=== PATIENT | female | born 1950 | race Caucasian/White ===

== ENCOUNTER 2018-06-08 21:59 | Emergency (ER) | payer OTHER ==
[2018-06-08 22:04] VITALS: BP 145/79
--- NOTE | 2018-06-08 22:25 | EDPHY ---
H & P Time Seen by Provider: 06/08/18 22:11 HPI/ROS: 67-year-old female presents complaining of ear bud stuck in her left ear. Review of systems As per HPI General no fever no chills no weakness HEENT no eye pain no eye discharge. No eye redness, no sore throat Respiratory no cough, no shortness of breath Cardiac no chest pain, no peripheral edema GI no abdominal pain, no diarrhea, no constipation, no nausea, no vomiting no flank pain, no hematuria, no dysuria Musculoskeletal no myalgias, no joint pain Heme no easy bruising, no easy bleeding Endo no polyuria, no polydipsia Skin no rashes, no pruritus Neuro no syncope, no dizziness, no headaches Psych is no suicidal ideation, no homicidal ideation Past Medical/Surgical History: Non contributory Social History: Denies alcohol or drug use Smoking Status: Former smoker Physical Exam: 67-year-old female Alert and oriented in no acute distress nontoxic appearance, afebrile Atraumatic normocephalic Left ear-blue foreign body visualized in ear canal, removed with alligator forceps with ease Repeat exam of left ear-no erythema, no bleeding, no exudate Lungs no respiratory distress Heart regular rate and rhythm Extremities no cyanosis clubbing edema Constitutional: Initial Vital Signs Temperature (C) 36.5 C 06/08/18 22:01 Heart Rate 80 06/08/18 22:01 Respiratory Rate 20 06/08/18 22:01 Blood Pressure 145/79 H 06/08/18 22:01 O2 Sat (%) 98 06/08/18 22:01 O2 Delivery Mode Room Air Allergies/Adverse Reactions: No Known Allergies Allergy (Unverified 06/08/18 22:00) Home Medications: Medication Instructions Recorded Multivitamins 06/08/18 Medical Decision Making ED Course/Re-evaluation: Patient seen and evaluated for left ear foreign body Impression/plan left ear foreign body, removed Departure - Departure Disposition: Home, Routine, Self-Care Clinical Impression: Ear foreign body Condition: Good Instructions: Ear Foreign Body (ED) Referrals: Patient,NotPresent [Primary Care Provider] - As per Instructions
== END 2018-06-08 22:40 | disposition home or self-care (01) ==
LOC: CED 21:59
PROC: 09C47ZZ Extirpation of Matter from Left External Auditory Canal, Via Natural or Artificial Opening (ICD-10-PCS; principal; 2018-06-08)
DX: T16.2XXA Foreign body in left ear, initial encounter (principal); Z87.891 Personal history of nicotine dependence; X58.XXXA Exposure to other specified factors, initial encounter